=== PATIENT | male | born 1950 | race Caucasian/White ===

== ENCOUNTER → 2017-01-30 | Outpatient (CLI) | payer MEDICARE ==
[2017-01-30 08:33] LABS: Basophils % (A) 1 %; CH 29.3; CHCM 34.4; Eosinophils # (A) 0.3 k/uL (0-0.7); Eosinophils % (A) 5 %; HDW 2.82; HGB 15.3 gm/dL (13.0-17.5); Luc # (Auto) 0.14; Luc % (Auto) 3; Lymphocytes % (A) 18 %; MCH 29.7 pg (25.0-35.0); MCHC 34.7 g/dL (31.0-37.0); MCV 85.4 fL (80.0-100.0); Mean Platelet Volume 6.8; Monocytes # (A) 0.6 k/uL (0-1.0); Monocytes % (A) 10 %; Neutrophils # (A) 3.6 k/uL (1.3-7.7); Neutrophils % (A) 64 %; RBC 5.15 m/uL (4.30-5.90); RDW 12.8 % (11.5-15.5); WBC 5.6 k/uL (3.8-10.6); WBC (Perox) 5.73
[2017-01-30 11:45] LABS: Prostate Specific Antigen 0.92 ng/mL (0.00-4.00)
== END | disposition home or self-care (01) ==
LOC: LABWHC1 07:42
PROVIDERS: ATTEND Family Medicine
DX: Z00.00 Encounter for general adult medical examination without abnormal findings (principal); E78.00 Pure hypercholesterolemia, unspecified; I10 Essential (primary) hypertension
CPT/HCPCS: 36415; 80061; 84153; 84443; 85025

== ENCOUNTER → 2017-06-19 | Outpatient (CLI) | payer MEDICARE ==
[2017-06-19 09:04] LABS: ALT 29 U/L (21-72); AST 22 U/L (17-59); Cholesterol 124 mg/dL (<200); HDL Cholesterol 52 mg/dL (40-60)
== END | disposition home or self-care (01) ==
LOC: LABWHC1 08:00
PROVIDERS: ATTEND Internal Medicine Interventional Cardiology
DX: E78.2 Mixed hyperlipidemia (principal)
CPT/HCPCS: 36415; 80061; 84450; 84460

== ENCOUNTER → 2017-12-02 | Outpatient (CLI) | payer MEDICARE ==
[2017-12-02 08:30] LABS: ALT 34 U/L (21-72); AST 22 U/L (17-59); Albumin 3.8 g/dL (3.5-5.0); Alkaline Phosphatase 95 U/L (38-126); Anion Gap 9 mmol/L; Blood Urea Nitrogen 21 mg/dL (9-20); Calcium 9.6 mg/dL (8.4-10.2); Carbon Dioxide 26 mmol/L (22-30); Chloride 107 mmol/L (98-107); Cholesterol 112 mg/dL (<200); Glucose 120 mg/dL (74-99); HDL Cholesterol 44 mg/dL (40-60); LDL Cholesterol,Calculated 53 mg/dL (0-99); Potassium 4.2 mmol/L (3.5-5.1); Sodium 142 mmol/L (137-145); Total Bilirubin 0.8 mg/dL (0.2-1.3); Total Protein 6.1 g/dL (6.3-8.2); Triglycerides 77 mg/dL (<150)
== END | disposition home or self-care (01) ==
LOC: LABWHC1 07:25
PROVIDERS: ATTEND Internal Medicine Interventional Cardiology
DX: E78.2 Mixed hyperlipidemia (principal)
CPT/HCPCS: 36415; 80053; 80061

== ENCOUNTER → 2018-06-23 | Outpatient (CLI) | payer MEDICARE ==
[2018-06-23 08:00] LABS: ALT 36 U/L (21-72); AST 25 U/L (17-59); Alkaline Phosphatase 81 U/L (38-126); Anion Gap 6 mmol/L; Blood Urea Nitrogen 23 mg/dL (9-20); Calcium 9.2 mg/dL (8.4-10.2); Carbon Dioxide 26 mmol/L (22-30); Chloride 108 mmol/L (98-107); Cholesterol 133 mg/dL (<200); Glucose 115 mg/dL (74-99); HDL Cholesterol 52 mg/dL (40-60); LDL Cholesterol,Calculated 70 mg/dL (0-99); Potassium 4.2 mmol/L (3.5-5.1); Sodium 140 mmol/L (137-145); Total Protein 6.4 g/dL (6.3-8.2); Triglycerides 57 mg/dL (<150)
== END | disposition home or self-care (01) ==
LOC: LABWHC1 07:24
PROVIDERS: ATTEND Internal Medicine Interventional Cardiology
DX: E78.2 Mixed hyperlipidemia (principal)
CPT/HCPCS: 36415; 80053; 80061

== ENCOUNTER 2018-11-27 11:52 | Day surgery (SDC) | payer MEDICARE ==
[2018-11-24 11:57] VITALS: BMI 27.1
[~2018-11-27 11:52] MED LIST: DEXAMETHASONE SOD PHOSPHATE 10 MG/ML 1 ML VIAL IV ONE; HYDROmorphone 0.5 MG/0.5 ML SYRINGE IVP PRN; LACTATED RINGERS 1,000 ML IV SCH; MIDAZOLAM (PF) 2 MG/2 ML VIAL IV PRN; ONDANSETRON 4 MG/2 ML VIAL IVP ONE; ceFAZolin IN SWFI 2 GM/20 ML SYRINGE IVP ONE
[2018-11-27] MEDS ORDERED: LIDOCAINE 1% 20 ML VIAL (10MG/ML) FOR IV START INTRADERMA ONE (12:42)
[2018-11-27] MEDS ORDERED: fentaNYL (PF) 50 MCG/ML 2 ML AMP IVP ONE (13:00)
[2018-11-27] MEDS ORDERED: MIDAZOLAM 2 MG/2 ML VIAL IVP ONE (13:00)
[2018-11-27] MEDS ORDERED: PROPOFOL 10 MG/ML 20 ML VIAL IV ONE ×2 (13:24)
[2018-11-27] MEDS ORDERED: LIDOCAINE 1% INJ 10MG/ML (20 ML MDV) ONE ×2 (13:24)
[2018-11-27] MEDS ORDERED: ROCURONIUM BROMIDE 10 MG/ML 10 ML VIAL IV ONE ×2 (13:24)
[2018-11-27] MEDS ORDERED: ePHEDrine SULFATE/0.9% NACL/PF 50 MG/5 ML SYRINGE IV ONE ×2 (13:24)
[2018-11-27] MEDS ORDERED: MIDAZOLAM 2 MG/2 ML VIAL ONE ×2 (13:24)
[2018-11-27] MEDS ORDERED: fentaNYL (PF) 50 MCG/ML 2 ML AMP ONE ×2 (13:24)
[2018-11-27] MEDS ORDERED: ceFAZolin 1,000 MG in SODIUM CHLORIDE 0.9% 1,000 ML IRRIGATION ONE (13:36)
[2018-11-27] MEDS ORDERED: LACTATED RINGERS 1,000 ML IV ONE (14:32)
[2018-11-27] MEDS ORDERED: ROPIVACAINE 1,100 MG, SODIUM CHLORIDE 0.9% 500 ML 330 ML MISCELLANE PRN ×2 (14:57)
[2018-11-27 15:20] VITALS: TEMP 99.2
--- NOTE | 2018-11-27 15:26 | P.ONQ ---
Anesthesiology Proc Note - PNB - Peripheral Nerve Block Performed Right Adductor Canal Infusion Time Out Performed: Yes Procedure Start Time: 13:00 Procedure Stop Time: 13:12 Indication: Requested by physician Specifically requested for management of pain by DrEwelina: Marcin Childress Sedation Type: Sedate with meaningful contact maintained Preparation: Sterile Dressing Position: Supine Catheter: Indwelling (pujank) Needle Size: 100mm (4") Needle Gauge: 21 Technique: Ultrasound Injectate: 0.5% Ropivacaine (see comment for volume) (20 ml) Blood Aspirated: No Pain Paresthesia on Injection Noted: No Resistance on Injection: Normal Events: Uneventful and Well Tolerated
[2018-11-27 15:42] VITALS: RESP 18
[2018-11-27] MEDS ORDERED: HYDROcodone/APAP 5-325MG 1 EACH TAB PO ONE (16:00)
[2018-11-27 17:23] VITALS: BP 152/78; PULSE 63
--- NOTE | 2018-12-15 12:00 | P.OP ---
Date of Procedure: 11/27/18 Procedure(s) Performed: PREOPERATIVE DIAGNOSES: 1. Right quad tendon rupture and disruption of the extensor mechanism, right knee POSTOPERATIVE DIAGNOSES: 1. Right quad tendon rupture and disruption of the extensor mechanism, right knee PROCEDURES PERFORMED: 1. Right knee open quad tendon repair, primary ANESTHESIA: General ESTIMATED BLOOD LOSS: Less than 25 cc TOURNIQUET: None DEBONING TEAM LEADER: None COMPLICATIONS: None DISPOSITION: To postanesthesia care unit INDICATIONS: Mr. García is a 68-year-old male who ruptured his quad tendon during a fall. He presents to the operating room today for quad tendon repair. I have explained the details of this surgery thoroughly and also explained the potential risks and complications. These are inclusive of, but not limited to: bleeding, infection, scarring, discomfort, blood vessel and nerve damage, stiffness, weakness, need for further surgery, failure to relieve symptoms, persistence or worsening of problems, , and other risks. Patient is aware of these risks and agrees to proceed with surgery. The consent form has been signed. PROCEDURE: Appropriate consent was obtained from the patient, who was then taken to the operating room and placed in the supine position. General anesthesia was initiated. Positioning was performed with care to make sure that all pressure points were adequately padded. Bear-hugger was used along with leg sequential compression device(s). Prepping and draping was completed in the usual aseptic fashion using Chloraprep. Timeout was called, confirming patient identity, side, procedure, and administration of antibiotics. The patient received intravenous antibiotics prior to incision. Incision was created over the anterior aspect of the knee directly over the prepatellar bursa and quad tendon. Incision was carried carefully down through skin into subcu tissues and to the peritenon. Full thickness subcutaneous flaps were created for exposure of the extensor mechanism and the ruptured quad tendon. The quad tendon had torn from the inferior pole of patella in ragged fashion. However, evaluation of the remaining distal stump of the quad tendon showed tissue adequate for a modified Krakw type repair. Minimal debridement of the ragged ends of the quad tendon was performed to not overly shorten the tendon. A modified Krakw-type stitch was then placed using #5 FiberWire suture through the medial and lateral sides of the quad tendon. Tension was held on the sutures after every throw to make sure that the sutures would not give and slipped after repair to the patella. Next, a 3 mm hole was drilled using a Beath needle from proximal to distal through the anterior aspect of the patella. The needle emerged at the patellar tendon insertion and a second hole was placed parallel to the first in similar fashion. The #5 FiberWire sutures were then brought through the patella using the Beath needle. The patella was carefully held in place by an assistant service manager and quad tendon was noted to be well reduced into the superior pole of the patella with the knee in full extension. The sutures were then tied down securely over the inferior aspect of the patella and the knot was buried within the patellar tendon. Once tension was released, it was noted that the quad tendon adequately restored the continuity of the extensor mechanism centrally. On both the medial and lateral sides of the extensor retinaculum, supplemental #2 FiberWire sutures were placed as well as 0 Vicryl sutures to further reinforce the repair. The knee was then gently bent to approximately 45 to assess the strength of the repair. The repair appeared robust without evidence of suture slippage or lengthening of the quad tendon. Further testing past 45 was not performed in order to not over stress the repair. Thorough irrigation of the wound was performed using normal saline. Hemostasis was obtained throughout the case using electrocautery. Sterile dressing was then applied using ABDs pads, Green roll and an Rajinder wrap and a secure knee immobilizer splint was applied. The patient tolerated the procedure well and no complications and minimal blood loss. He was subsequently transferred to recovery room in stable condition. Sponge and needle counts are correct.
== END 2018-11-27 17:24 | disposition home or self-care (01) ==
LOC: OR 11:52
PROVIDERS: ATTEND Orthopaedic Surgery
DX: S76.111A Strain of right quadriceps muscle, fascia and tendon, initial encounter (principal); W18.2XXA Fall in (into) shower or empty bathtub, initial encounter; M25.061 Hemarthrosis, right knee; K21.9 Gastro-esophageal reflux disease without esophagitis; E78.2 Mixed hyperlipidemia; I25.10 Atherosclerotic heart disease of native coronary artery without angina pectoris; I25.5 Ischemic cardiomyopathy; I11.9 Hypertensive heart disease without heart failure; I25.2 Old myocardial infarction; Z95.5 Presence of coronary angioplasty implant and graft; Z79.1 Long term (current) use of non-steroidal anti-inflammatories (NSAID); Z79.82 Long term (current) use of aspirin; Z79.891 Long term (current) use of opiate analgesic; Z79.899 Other long term (current) drug therapy; Z85.828 Personal history of other malignant neoplasm of skin; Z85.820 Personal history of malignant melanoma of skin; Z87.442 Personal history of urinary calculi; Z82.49 Family history of ischemic heart disease and other diseases of the circulatory system; Z88.8 Allergy status to other drugs, medicaments and biological substances
CPT/HCPCS: 64448; 27385; C1772; J2250; J1100; J2405; J0690 ×2; J2001; J3010; J2795; J2704

== ENCOUNTER → 2019-01-21 | Outpatient (CLI) | payer MEDICARE | END | disposition home or self-care (01) | LOC: LABT 09:10 | PROVIDERS: ATTEND Family Medicine | DX: Z00.00 Encounter for general adult medical examination without abnormal findings (principal); E78.5 Hyperlipidemia, unspecified; I10 Essential (primary) hypertension; I25.2 Old myocardial infarction | CPT/HCPCS: 36415; 84153; 86803 ==

== ENCOUNTER → 2019-02-17 | Outpatient (CLI) | payer MEDICARE ==
[2019-02-17 12:04] LABS: Albumin 4.1 g/dL (3.80-4.90); Albumin/Globulin Ratio 2.73 (1.60-3.17); Calcium 9.2 mg/dL (8.7-10.3); Globulin 1.5 g/dL (1.6-3.3); LDL Cholesterol,Calculated 64.4 mg/dL (0.0-131.0); Potassium 4.6 mmol/L (3.5-5.5); Total Bilirubin 1.2 mg/dL (0.2-1.2); Total Protein 5.6 g/dL (6.2-8.2); VLDL Calculation 12.6 mg/dL (5.00-40.00)
== END | disposition home or self-care (01) ==
LOC: LABWHC1 07:06
PROVIDERS: ATTEND Internal Medicine Interventional Cardiology
DX: E78.2 Mixed hyperlipidemia (principal)
CPT/HCPCS: 36415; 80053; 80061

== ENCOUNTER → 2019-03-01 | Outpatient (CLI) | payer MEDICARE ==
[2019-03-01 10:49] LABS: Anion Gap 6.5 mmol/L (4.00-12.00); Carbon Dioxide 26.5 mmol/L (21.6-31.8); Potassium 3.8 mmol/L (3.5-5.5)
== END | disposition home or self-care (01) ==
LOC: LABWHC1 06:46
PROVIDERS: ATTEND Internal Medicine Interventional Cardiology
DX: I10 Essential (primary) hypertension (principal)
CPT/HCPCS: 36415; 80051; 82565; 84520

== ENCOUNTER → 2019-06-22 | Outpatient (CLI) | payer MEDICARE ==
[2019-06-22 17:42] LABS: African American GFR (CKD) 105.6 (60.0-200.0); Albumin/Globulin Ratio 2.5 (1.60-3.17); Anion Gap 6.1 mmol/L (4.00-12.00); BUN/Creat Ratio 21.25 Ratio (12.00-20.00); Calcium 9.1 mg/dL (8.7-10.3); Carbon Dioxide 23.9 mmol/L (21.6-31.8); Chol/HDL Ratio 2.47; Globulin 1.6 g/dL (1.6-3.3); LDL Cholesterol,Calculated 57.6 mg/dL (0.0-131.0); Total Protein 5.6 g/dL (6.2-8.2); VLDL Calculation 14.4 mg/dL (5.00-40.00)
== END | disposition home or self-care (01) ==
LOC: LABWHC1 08:12
PROVIDERS: ATTEND Internal Medicine Interventional Cardiology
DX: E78.2 Mixed hyperlipidemia (principal)
CPT/HCPCS: 36415; 80053; 80061

== ENCOUNTER → 2019-09-06 | Outpatient (CLI) | payer MEDICARE ==
[2019-09-06 11:17] LABS: Basophils # (A) 0.1 k/uL (0-0.2); Basophils % (A) 2 %; Eosinophils # (A) 0.5 k/uL (0-0.7); Eosinophils % (A) 8 %; HCT 43.8 % (39.0-53.0); HGB 14.9 gm/dL (13.0-17.5); Lymphocytes # (A) 0.9 k/uL (1.0-4.8); Lymphocytes % (A) 15 %; MCH 29.5 pg (25.0-35.0); MCV 86.7 fL (80.0-100.0); Mean Platelet Volume 8.5; Monocytes # (A) 0.5 k/uL (0-1.0); Monocytes % (A) 8 %; Neutrophils # (A) 3.8 k/uL (1.3-7.7); Neutrophils % (A) 65 %; Platelet Count 252 k/uL (150-450); RBC 5.06 m/uL (4.30-5.90); RDW 12.5 % (11.5-15.5); WBC 5.8 k/uL (3.8-10.6)
[2019-09-06 17:50] LABS: African American GFR (CKD) 105.6 (60.0-200.0); Albumin 4.2 g/dL (3.80-4.90); Albumin/Globulin Ratio 2.63 (1.60-3.17); Anion Gap 10.4 mmol/L (4.00-12.00); Calcium 9.4 mg/dL (8.7-10.3); Carbon Dioxide 26.6 mmol/L (21.6-31.8); Chol/HDL Ratio 2.7; Globulin 1.6 g/dL (1.6-3.3); LDL Cholesterol,Calculated 61.8 mg/dL (0.0-131.0); Potassium 3.9 mmol/L (3.5-5.5); Total Bilirubin 1.4 mg/dL (0.2-1.2); Total Protein 5.8 g/dL (6.2-8.2); VLDL Calculation 18.2 mg/dL (5.00-40.00)
[2019-09-06 17:58] LABS: T4, Free (Free Thyroxine) 1.4 ng/dL (0.80-1.80)
== END | disposition home or self-care (01) ==
LOC: LABWHC1 07:56
PROVIDERS: ATTEND Family Medicine
DX: Z00.00 Encounter for general adult medical examination without abnormal findings (principal); I10 Essential (primary) hypertension; E78.5 Hyperlipidemia, unspecified; Z12.5 Encounter for screening for malignant neoplasm of prostate
CPT/HCPCS: 36415; 80053; 80061; 84153; 84439; 84443; 85025

== ENCOUNTER → 2020-03-15 | Outpatient (CLI) | payer MEDICARE ==
[2020-03-15 09:48] LABS: Basophils % (A) 1 %; Eosinophils # (A) 0.3 k/uL (0-0.7); Eosinophils % (A) 6 %; HCT 45.4 % (39.0-53.0); HGB 15.4 gm/dL (13.0-17.5); Lymphocytes % (A) 19 %; MCH 29.5 pg (25.0-35.0); MCV 86.7 fL (80.0-100.0); Mean Platelet Volume 7.8; Monocytes # (A) 0.5 k/uL (0-1.0); Monocytes % (A) 9 %; Neutrophils # (A) 3.3 k/uL (1.3-7.7); Neutrophils % (A) 64 %; Platelet Count 209 k/uL (150-450); RBC 5.24 m/uL (4.30-5.90); RDW 12.5 % (11.5-15.5); WBC 5.2 k/uL (3.8-10.6)
[2020-03-15 15:50] LABS: African American GFR (CKD) 104.9 (60.0-200.0); Albumin/Globulin Ratio 2.11 (1.60-3.17); BUN/Creat Ratio 32.5 Ratio (12.00-20.00); Bilirubin, Conjugated 0.5 mg/dL (0.20-0.40); Bilirubin,Unconjugated 0.8 mg/dL; Calcium 9.4 mg/dL (8.7-10.3); Globulin 1.9 g/dL (1.6-3.3); LDL Cholesterol,Calculated 57.4 mg/dL (0.0-131.0); Non-African American GFR(CKD) 90.5 (60.0-200.0); Potassium 4.3 mmol/L (3.5-5.5); Total Bilirubin 1.3 mg/dL (0.3-1.2); Total Protein 5.9 g/dL (6.2-8.2); VLDL Calculation 14.6 mg/dL (5.00-40.00)
[2020-03-15 15:57] LABS: T4, Free (Free Thyroxine) 1.1 ng/dL (0.80-1.80)
== END | disposition home or self-care (01) ==
LOC: LABWHC1 08:16
PROVIDERS: ATTEND Internal Medicine Interventional Cardiology
DX: Z00.00 Encounter for general adult medical examination without abnormal findings (principal); E78.2 Mixed hyperlipidemia
CPT/HCPCS: 36415; 80053; 80061; 82248; 84439; 84443; 85025

== ENCOUNTER → 2020-10-25 | Outpatient (CLI) | payer MEDICARE | END | disposition home or self-care (01) | LOC: LABWHC1 07:09 | PROVIDERS: ATTEND Nurse Practitioner Adult Health | DX: E78.2 Mixed hyperlipidemia (principal) | CPT/HCPCS: 36415; 80061; 84450; 84460 ==

== ENCOUNTER → 2021-05-23 | Outpatient (CLI) | payer MEDICARE ==
[2021-05-23 08:26] LABS: African American GFR (CKD) >90 (>60 ml/min/1.73 sqM); Blood Urea Nitrogen 21 mg/dL (9-20); Non-African American GFR(CKD) >90 (>60 ml/min/1.73 sqM)
--- NOTE | 2021-05-23 10:23 | CT ---
EXAMINATION TYPE: CT angio chest DATE OF EXAM: 05/23/2021 COMPARISON: None HISTORY: 70-year-old male I71.2, thoracic aortic aneurysm without rupture. Prior LA in 2015. TECHNIQUE: Contiguous axial scanning of the chest performed with IV Contrast, patient injected with 1 00 mL of Isovue 370. Coronal/sagittal MIP reconstructions performed. 3-D reconstructions generated on a dedicated independent workstation. CT DLP: 362.7 mGycm Automated exposure control for dose reduction was used. FINDINGS: Heart is borderline enlarged without pericardial effusion. LAD and circumflex coronary artery calcifi cations are present. Mild aneurysm aortic root at 4.3 cm. Mild aneurysm ascending aorta 4.1 cm. Bovine configuration to the aortic arch with minimal atherosclerotic arch calcifications. Mildly ectatic upper descending thoracic aorta at 3.3 cm. Scattered mild arthroscopic calcifications descending thoracic aorta. Mildly ectatic mid descending thoracic aorta at 2.8 cm. Borderline ectatic lower descending thoracic aorta 2.5 cm. No thoracic lymphadenopathy by CT size criteria. Trace bilateral gynecomastia. Trace biapical pleural parenchymal scarring. Scattered mild interstitial prominence has a chronic evelia earance. Mild dependent atelectasis bilaterally. Tiny 4 mm peripheral left lower lobe pulmonary nodule, axial image 37. No consolidation or pleural effusion. Visualized upper abdomen shows no gross abnormality. Bones: Patient within the mid to lower thoracic spine. Advanced disc/endplate degenerative change and facet arthropathy at L2-L3 with grade 1 retrolisthesis. IMPRESSION: 1. MILDLY ANEURYSMAL AORTIC ROOT AND ASCENDING AORTA MEASURING UP TO 4.3 CM. 2. MILDLY ECTATIC DESCENDING THORACIC AORTA MEASURING UP TO 3.3 CM. 3. BORDERLINE CARDIOMEGALY. LAD AND CIRCUMFLEX CORONARY ARTERY CALCIFICATIONS. 4. TINY 4 MM LEFT LOWER LOBE PULMONARY NODULE. A 12 MONTH FOLLOW-UP CT OF THE CHEST CAN REASSESS.
== END | disposition home or self-care (01) ==
LOC: RADCTMAIN 07:40
PROVIDERS: ATTEND Internal Medicine Interventional Cardiology
DX: I77.810 Thoracic aortic ectasia (principal); I25.10 Atherosclerotic heart disease of native coronary artery without angina pectoris; R91.1 Solitary pulmonary nodule
CPT/HCPCS: 82565; 84520; 71275; 36415; Q9967

== ENCOUNTER → 2021-10-15 | Outpatient (CLI) | payer MEDICARE ==
[2021-10-15 11:34] LABS: ALT 19 U/L (10-49); AST 19 U/L (14-35); African American GFR (CKD) 101.6 (60.0-200.0); Albumin/Globulin Ratio 2.25 (1.60-3.17); Alkaline Phosphatase 101 U/L (41-126); BUN/Creat Ratio 23.18 Ratio (12.00-20.00); Blood Urea Nitrogen 19.7 mg/dL (9.0-27.0); Calcium 9.2 mg/dL (8.7-10.3); Carbon Dioxide 26.6 mmol/L (20.0-27.5); Chloride 105 mmol/L (96-109); Chol/HDL Ratio 2.59 Ratio; Globulin 1.8 g/dL (1.6-3.3); Glucose 137 mg/dL (70-110); LDL Cholesterol,Calculated 51.7 mg/dL (0.0-131.0); Non-African American GFR(CKD) 87.7 (60.0-200.0); Potassium 3.9 mmol/L (3.5-5.5); Sodium 141 mmol/L (135-145); Total Protein 5.8 g/dL (6.2-8.2); VLDL Calculation 18.22 mg/dL (5.00-40.00)
== END | disposition home or self-care (01) ==
LOC: LABWHC1 07:35
PROVIDERS: ATTEND Nurse Practitioner Adult Health
DX: I10 Essential (primary) hypertension (principal); E78.2 Mixed hyperlipidemia
CPT/HCPCS: 36415; 80053; 80061

== ENCOUNTER → 2021-11-21 | Outpatient (CLI) | payer MEDICARE | END | disposition home or self-care (01) | LOC: LABWHC1 07:02 | PROVIDERS: ATTEND Nurse Practitioner Adult Health | DX: I48.91 Unspecified atrial fibrillation (principal) | CPT/HCPCS: 36415; 84443 ==

== ENCOUNTER 2021-12-17 05:58 | Day surgery (SDC) | payer MEDICARE ==
[2021-12-14 10:14] VITALS: BMI 27.4
[~2021-12-17 05:58] MED LIST changes: -DEXAMETHASONE SOD PHOSPHATE 10 MG/ML 1 ML VIAL IV ONE; -HYDROmorphone 0.5 MG/0.5 ML SYRINGE IVP PRN; -LACTATED RINGERS 1,000 ML IV SCH; -MIDAZOLAM (PF) 2 MG/2 ML VIAL IV PRN; -ONDANSETRON 4 MG/2 ML VIAL IVP ONE; +SODIUM CHLORIDE 0.9% 1,000 ML IV SCH; -ceFAZolin IN SWFI 2 GM/20 ML SYRINGE IVP ONE
[2021-12-17] MEDS ORDERED: SODIUM CHLORIDE 0.9% 1,000 ML IV SCH ×2 (05:59→07:45)
[2021-12-17] MEDS ORDERED: SODIUM CHLORIDE 0.9% 500 ML 500 ML IV ONE (06:21)
[2021-12-17 06:29] VITALS: TEMP 98
[2021-12-17 06:58] LABS: African American GFR (CKD) >90 (>60 ml/min/1.73 sqM); Anion Gap 5 mmol/L; Blood Urea Nitrogen 18 mg/dL (9-20); Calcium 8.9 mg/dL (8.4-10.2); Carbon Dioxide 31 mmol/L (22-30); Chloride 103 mmol/L (98-107); Glucose 126 mg/dL (74-99); Non-African American GFR(CKD) >90 (>60 ml/min/1.73 sqM); Potassium 3.7 mmol/L (3.5-5.1); Sodium 139 mmol/L (137-145)
[2021-12-17] MEDS ORDERED: PROPOFOL 10 MG/ML 20 ML VIAL IV ONE (07:15)
[2021-12-17] MEDS ORDERED: LIDOCAINE 1% INJ 10MG/ML (20 ML MDV) ONE (07:15)
--- NOTE | 2021-12-17 07:48 | P.PCN ---
Date of Procedure: 12/17/21 Description of Procedure: Indication: Atrial fibrillation Procedure Description: After explaining the procedure to the patient, it's risk and complications, blood pressure, heart rate and O2 saturation were monitored. The throat was sprayed with Cetacaine. Patient received sedation per anesthesia department The probe was introduced into the esophagus without difficulty. Images were obtained. Following that, the probe was removed. There was no immediate complication. Findings: Left atrial size is dilated, left atrial appendage is normal. Left ventricle size is normal the ejection fraction is 45-50%. The aortic valve, mitral valve, tricuspid valve are normal. Descending thoracic aorta is normal. No pericardial effusion was noted. Contrast bubble study revealed no shunting across the intra-atrial septum. Doppler: Pulse wave and color Doppler were obtained and revealed moderate mitral with mild to moderate tricuspid regurgitation there was no shunting across the intra- atrial septum. Conclusion: 1. Dilated left atrium with normal appearance of left atrial appendage 2. Mildly impaired systolic function 3. Moderate mitral with [id number] tricuspid regurgitation 4. No shunting across the intra-atrial septum 5. Normal appearance of the descending thoracic aorta.
--- NOTE | 2021-12-17 07:49 | P.PCN ---
Date of Procedure: 12/17/21 Description of Procedure: Cardioversion: After obtaining transesophageal echocardiogram and sedated state. Anesthesia department synchronized 75, 120 and then 200 J cardioversion were performed with inability to restore sinus mechanism. There was no immediate complications.
[2021-12-17 07:54] VITALS: RESP 16
[2021-12-17] MEDS ORDERED: LOSARTAN 25 MG TAB PO SCH (09:00)
[2021-12-17] MEDS ORDERED: carvediloL 3.125 MG TAB PO SCH (09:00)
[2021-12-17] MEDS ORDERED: NON FORMULARY DRUG (Omeprazole [Prilosec] 20 MG Capsule.Dr) PO SCH (09:00)
[2021-12-17] MEDS ORDERED: NON FORMULARY DRUG (Aspirin [Adult Low Dose Aspirin Ec] 81 MG Tablet.Dr) PO SCH (09:00)
[2021-12-17] MEDS ORDERED: APIXABAN 5 MG TAB PO SCH (09:00)
[2021-12-17] MEDS ORDERED: hydroCHLOROthiazide 25 MG TAB PO SCH (09:00)
[2021-12-17 14:06] VITALS: BP 136/75; PULSE 59
[2021-12-17] MEDS ORDERED: ATORVASTATIN 80 MG TAB PO SCH (21:00)
== END 2021-12-17 09:35 | disposition home or self-care (01) ==
LOC: CATHCVL 05:58
PROVIDERS: ATTEND Internal Medicine Interventional Cardiology
DX: I48.91 Unspecified atrial fibrillation (principal); I25.10 Atherosclerotic heart disease of native coronary artery without angina pectoris; I10 Essential (primary) hypertension; E78.5 Hyperlipidemia, unspecified; K21.9 Gastro-esophageal reflux disease without esophagitis; Z20.822 Contact with and (suspected) exposure to COVID-19
CPT/HCPCS: 93312; 93320; 93325; 92960; 80048; 87635; J2001; J2704

== ENCOUNTER → 2022-04-10 | Outpatient (CLI) | payer MEDICARE ==
[2022-04-10 10:46] LABS: HGB 14.3 g/dL (13.0-17.0); MCH 28.3 pg (27.0-32.0); MCHC 33.3 g/dL (32.0-37.0); Mean Platelet Volume 11.5 fL (9.5-12.2); NRBC Per 100 WBC 0 /100 WBCS (0.0-0.0); Platelet Count 214 X 10*3/uL (140-440); RBC 5.06 X 10*6/uL (4.40-5.60); RDW 12.6 % (11.5-14.5); WBC 5.08 X 10*3/uL (4.50-10.00)
[2022-04-10 11:03] LABS: African American GFR (CKD) 103.4 (60.0-200.0); Anion Gap 12.4 mmol/L (10.00-18.00); Blood Urea Nitrogen 21.5 mg/dL (9.0-27.0); Carbon Dioxide 23.6 mmol/L (20.0-27.5); Non-African American GFR(CKD) 89.2 (60.0-200.0)
== END | disposition home or self-care (01) ==
LOC: LABPAT 07:03
PROVIDERS: ATTEND Internal Medicine Clinical Cardiac Electrophysiology
DX: Z01.812 Encounter for preprocedural laboratory examination (principal); I48.19 Other persistent atrial fibrillation
CPT/HCPCS: 80051; 82565; 84520; 85027

== ENCOUNTER 2022-04-15 05:48 | Day surgery (SDC) | payer MEDICARE ==
[2022-04-12 11:31] VITALS: BMI 27.1
[~2022-04-15 05:48] MED LIST changes: +LIDOCAINE 1% (10MG/ML) FOR IV START INTRADERMA PRN; -SODIUM CHLORIDE 0.9% 1,000 ML IV SCH
[2022-04-15] MEDS: SODIUM CHLORIDE 0.9% 1,000 ML IV SCH (06:20)
[2022-04-15 06:24] VITALS: RESP 16
[2022-04-15] MEDS ORDERED: fentaNYL (PF) 50 MCG/ML 2 ML AMP ONE (07:16)
[2022-04-15] MEDS ORDERED: ePHEDrine 50 MG/ML 1 ML VIAL ONE (07:16)
[2022-04-15] MEDS ORDERED: HEPARIN SODIUM,PORCINE 10,000 UNIT/ML 1 ML VIAL ONE (07:16)
[2022-04-15] MEDS ORDERED: PROPOFOL 10 MG/ML 20 ML VIAL IV ONE (07:16)
[2022-04-15] MEDS ORDERED: SUCCINYLCHOLINE CHLORIDE 100 MG/5 ML SYR IV ONE (07:16)
[2022-04-15] MEDS ORDERED: LIDOCAINE 1% INJ 10MG/ML (5 ML VIAL-PF) SQ ONE (07:59)
[2022-04-15] MEDS ORDERED: HEPARIN SOD,PORK IN 0.45% NACL 25,000 UNIT in 0.45% NACL 1 250ML.BAG IV ONE (08:00)
[2022-04-15] MEDS ORDERED: IOPAMIDOL-370 125ML BTL INJ ONE (10:30)
--- NOTE | 2022-04-15 11:11 | P.HPCAR ---
History of Present Illness This is Dr. Cheatham dictating an H/P on this patient The patient was interviewed and examined IMPRESSION / ASSESSMENT: Long-standing persistent atrial fibrillation Name complaint of tiredness and fatigue and shortness of breath Left ventricle ejection fraction 50% Hypertension, dyslipidemia PLAN: Pulmonary vein isolation linear ablation of the left atrial roof Continue ELIQUIS HPI Patient's main complaint is shortness of breath on exertion Denies any chest discomfort business syncope Orthopnea PND No fever chills cough expectoration ROS: No fever chills or rigors, no cough, phlegm or expectoration, no nausea, vomiting or diarrhea, no hematuria, dysuria, no musculoskeletal complaints, no strokes or seizures, no skin lesions. EXAMINATION: 97.1F pulse rate in the 50s and 60s irregular Blood pressure 146/72 mmHg No JVD no hepatojugular reflux No lower extremity edema line soft abdomen nontender And clear lungs no rhonchi no crackles Heart sounds no murmurs, irregular rhythm REVIEW OF LABS, ECG & MEDICAL DATA Calles PCR negative Physical Exam Vitals: Vital Signs Temp Pulse Resp BP Pulse Ox 04/15/22 06:23 97.1 F L 51 L 16 146/82 95 Intake and Output 04/14/22 04/15/22 04/15/22 22:59 06:59 14:59 Intake Total 450 Balance 450 Intake: IV 450 Other: Weight 88.2 kg Past Medical History Past Medical History: Coronary Artery Disease (CAD), Cancer, GERD/Reflux, Hyperlipidemia, Hypertension, Myocardial Infarction (NC), Syncope Additional Past Medical History / Comment(s): HX KIDNEY STONES, HX SKIN CA, TO S EE DR CHEATHAM'S HISTORY PHYSICAL FOR CARDIAC HISTORY Last Myocardial Infarction Date:: 09/28/2015 History of Any Multi-Drug Resistant Organisms: None Reported Past Surgical History: Heart Catheterization With Stent Additional Past Surgical History / Comment(s): BUNIONECTOMY. RIGHT QUADRICEP TENDON REPAIR. STENTSX4 Past Anesthesia/Blood Transfusion Reactions: No Reported Reaction Date of Last Stent Placement:: 10/25/2015 Smoking Status: Never smoker - Past Family History Father Family Medical History: Coronary Artery Disease (CAD), Hypertension Additional Family Medical History / Comment(s): CARDIAC CATH WITH STENT Mother Family Medical History: Cancer Brother(s) Family Medical History: No Reported History Additional Family Medical History / Comment(s): patient has 2 children with 3 grand kids,no major issues. Physical Examination Vital Signs Temp Pulse Resp BP Pulse Ox 04/15/22 06:23 97.1 F L 51 L 16 146/82 95 Intake and Output 04/14/22 04/15/22 04/15/22 22:59 06:59 14:59 Intake Total 450 Balance 450 Intake: IV 450 Other: Weight 88.2 kg Results Current Medications Generic Name Dose Route Start Last Admin Trade Name Janice PRN Reason Stop Dose Admin Sodium Chloride 1,000 mls @ 20 mls/hr 04/15/22 05:47 04/15/22 06:20 Saline 0.9% IV 05/15/22 05:48 450 mls .Q24H NIMESH Administration Lactated Ringer's 1,000 mls @ 20 mls/hr 04/15/22 05:47 Lactated Ringers IV 05/15/22 05:48 .Q24H NIMESH Lidocaine HCl 0.1 ml 04/15/22 05:47 Lidocaine 1% (10mg/Ml) For Iv Start INTRADERMA 05/15/22 05:48 PER PROTOCOL PRN IV Start Intake and Output 04/14/22 04/15/22 04/15/22 22:59 06:59 14:59 Intake Total 450 Balance 450 Intake: IV 450 Other: Weight 88.2 kg
[2022-04-15] MEDS ORDERED: ACETAMINOPHEN TAB 325 MG TAB PO PRN (11:12)
[2022-04-15] MEDS ORDERED: ACETAMINOPHEN IV (For NPO) 1,000 MG in EMPTY BAG 1 BAG IVPB ONE (11:12)
--- NOTE | 2022-04-15 11:38 | P.EPPROC ---
- EP Procedure Note Electrophysiology Procedure Note: PROCEDURE A. fib ablation/pulmonary vein isolation and linear ablation of the left atrial roof DIAGNOSIS Long-standing persistent Atrial fibrillation, symptomatic, refractory to therapy RESULT Significantly enlarged right atrium Significantly enlarged left atrium, greater than 6 cm from fossa ovalis to the keyanna of the left-sided veins Successful A. fib ablation/pulmonary vein isolation of all veins using cryo- ablation Complete entrance block in all 4 veins confirmed Linear ablation of the long left atrial roof No evidence for phrenic nerve injury Esophageal deflection YES, left-sided esophagus Patient remained in atrial fibrillation after complete PVI and linear ablation left atrial roof Electrical cardioversion with a synchronized shock across the chest YES PROCEDURE DETAILS Patient was brought to the EP lab in a fasting state after obtaining written informed consent. Procedure performed under general anesthesia Esophagus was intubated. Esophageal temperature monitoring with circa catheter. Esophageal deflection with an endoscope to avoid hypothermia of the esophagus. After initial muscle relaxant use, muscle relaxants were not given thereafter in order to assess phrenic nerve during procedure. Patient prepped and draped as per protocol Cryo ablation-set up with standard preparation of the cryoablation tools done. Femoral Venous access obtained on the right and left groins and sheaths placed Diagnostic catheters for the high right atrium, phrenic nerve stimulation and pacing, His bundle, coronary sinus placed Intracardiac echo catheter placed. Long sheath placed in the right atrium Left and right transseptal catheterization performed under intracardiac echo guidance. Intravenous heparin with aCT above 300 Later, catheter positioning and balloon positioning in the left atrium and pulmonary veins, under intracardiac echo guidance Diagnostic EP study with coronary sinus pacing and recording Baseline measurements: SD interval 292 ms in sinus rhythm, QRS 102 ms, QT 400 ms and sinus cycle length 1035 AH 118 and HV 51 in sinus Transseptal catheterization performed RA pressure LA pressure 05/05/11 Transseptal catheterization performed with standard sheath. The cryoablation sheath was then placed with an over the wire exchange without any acute complications. The cryoablation balloon was placed in the office of each pulmonary vein and all 4 pulmonary veins were isolated. IV dye was injected to confirm occlusion. Goal: achieve complete occlusion of the pulmonary vein, achieve -30 degrees C at 30 seconds and achieve -40 degrees C at 60 seconds and a time to effect of less than 60 seconds. If not, the balloon was repositioned to obtain this result After completion of Cryoblation with durations from 180-240 seconds, entrance block was confirmed with the Attain circular catheter in a roving fashion around the antrum of the pulmonary veins Phrenic nerve pacing was performed from the SVC, right innominate vein area and diaphragm voltage was monitored. Diaphragmatic contractions were also monitored manually for strength of contraction. Phrenic nerve could be stimulated from the anterior aspect of left superior pulmonary vein. Linear ablation of the left atrial roof was performed from the left superior to the right superior pulmonary veins Contiguous cryoablation lesions were performed and confirmed Good temperature is achieved with good contact Despite complete pulmonary vein isolation and a complete roof line, the patient remained in atrial fibrillation 5 200 J biphasic shock was used to cardio with the patient sinus rhythm with PACs Baseline SD interval was prolonged At the end of the procedure the Achieve catheter was once again used to check for entrance block Phrenic nerve stimulation was performed to confirm diaphragmatic stimulation the end of the procedure Cine fluoroscopy was performed at the very end of the procedure to confirm movement of both diaphragms with inspiration and expiration At the end of the procedure the patient was extubated Venous sheaths were removed and hemostasis assured with a closure device PROCEDURES PERFORMED Diagnostic EP study CS pacing and recording Left and right transseptal catheterization Catheter the mapping of the tachycardia Intracardiac echocardiography Pulmonary vein isolation with transseptal and comprehensive EPS, [id number] Left atrial roof line, +[id number] Electrical cardioversion with a synchronized shock across the chest [id number]
[2022-04-15] MEDS ORDERED: ACETAMINOPHEN IV (For NPO) 1,000 MG/100 ML VIAL IVPB ONE (11:39)
--- NOTE | 2022-04-15 11:42 | P.PRLE ---
RE: Uday García Dear Davey Mr. García underwent an A. fib ablation with pulmonary vein isolation and linear ablation of the left atrial roof successfully However despite that he remained in atrial fibrillation and had to undergo electrical cardioversion He has a significantly enlarged right and left atria At baseline is FL interval is mildly prolonged at At this time and continue his current medications including carvedilol and anticoagulation with alk phos Thank you for entrusting me with the care of the patient Warm regards Sincerely Dwight Cheatham
[2022-04-15] MEDS: LACTATED RINGERS 1,000 ML IV SCH (12:30)
[2022-04-15] MEDS: carvediloL 3.125 MG TAB PO SCH (20:22)
[2022-04-15] MEDS: APIXABAN 5 MG TAB PO SCH (20:22)
[2022-04-15] MEDS ORDERED: ATORVASTATIN 80 MG TAB PO SCH (21:00)
[2022-04-16] MEDS: LACTATED RINGERS 1,000 ML IV SCH (06:06)
[2022-04-16] MEDS: SODIUM CHLORIDE 0.9% 1,000 ML IV SCH (06:07)
[2022-04-16] MEDS: carvediloL 3.125 MG TAB PO SCH (07:05)
[2022-04-16] MEDS ORDERED: PANTOPRAZOLE 40 MG TABLET PO SCH (07:30)
[2022-04-16 07:46] VITALS: BP 142/90; PULSE 92; TEMP 98.5
--- NOTE | 2022-04-16 08:05 | P.DS ---
Providers Attending physician: Dwight Cheatham Primary care physician: [facility] Course: Patient is doing well. No chest discomfort dizziness lightheadedness or palpitations Ambulating around in the room Groins of healed well no bruising bleeding or hematoma or swelling Scratchy throat no dysphagia On examination afebrile 98.5F, pulse rate 60s to 80s Blood pressure 142/90 and 122/71 mmHg Breath sounds are clear no rhonchi no crackles Heart sounds S1 and S2 are normal Abdomen is soft Groins of healed well no hematoma Impression Long-standing persistent atrial fibrillation Significantly enlarged right atrium Significantly enlarged left atrium, fossa ovalis to left pulmonary veins measurement greater than 6 cm Normal RA and LA mean pressures LV function greater than 50-55% Status post pulmonary vein isolation and linear ablation of the left atrial roof Electrical cardioversion performed at the end of the procedure Plan Continue current medications without any changes Continue anticoagulation Follow-up with Dr. Hernandez in a week Minimize alcohol intake. Discussed with the patient Sleep apnea assessment Plan - Discharge Summary Discharge Rx Participant: Yes New Discharge Prescriptions: No Action RX: Omeprazole [PriLOSEC] 20 mg PO DAILY Losartan [Cozaar] 50 mg PO DAILY RX: carvediloL [Coreg] 3.125 mg PO BID RX: Atorvastatin [Lipitor] 80 mg PO HS RX: Aspirin [Adult Low Dose Aspirin EC] 81 mg PO DAILY #1 tablet. Apixaban [Eliquis] 5 mg PO BID RX: hydroCHLOROthiazide 25 mg PO DAILY Discharge Medication List RX: Omeprazole [PriLOSEC] 20 mg PO DAILY 06/11/15 [History] Losartan [Cozaar] 50 mg PO DAILY 10/18/15 [History] RX: carvediloL [Coreg] 3.125 mg PO BID 10/18/15 [History] RX: Atorvastatin [Lipitor] 80 mg PO HS 09/30/16 [History] RX: Aspirin [Adult Low Dose Aspirin EC] 81 mg PO DAILY #1 tablet. 11/27/18 [Rx] Apixaban [Eliquis] 5 mg PO BID 12/14/21 [History] RX: hydroCHLOROthiazide 25 mg PO DAILY 12/14/21 [History] Follow up Appointment(s)/Referral(s): Dwight Cheatham MD [STAFF PHYSICIAN] - As Needed (Follow-up Dr. Hernandez in 1 week No change in medications Continue ELIQUIS) Activity/Diet/Wound Care/Special Instructions: Post EP study - Ablation instructions 1. Keep access sites dry for 2 days. 2. No heavy lifting or straining for 2 days. 3. Avoid bending the hips repeatedly for 2 days. 4. You may go up and down stairs slowly Call if the following is noted 1. Bleeding, increasing swelling or pain at the access sites. 2. Increasing chest discomfort, especially upon taking a deep breath. 3. Increasing shortness of breath, at rest or with exertion. 4. Undue cough / phlegm 5. Difficulty or pain while swallowing. 6. Pain or change in color in the extremities. 7. Fever, chills, rigors. 8. Increasing headache or neurologic symptoms. 9. Dizziness, fainting, palpitations Continue current medications Follow Dr. Hernandez in 1 week Discharge Disposition: HOME SELF-CARE
[2022-04-16] MEDS ORDERED: ASPIRIN 81 MG PO SCH (09:00)
[2022-04-16] MEDS ORDERED: hydroCHLOROthiazide 25 MG TAB PO SCH (09:00)
[2022-04-16] MEDS: APIXABAN 5 MG TAB PO SCH (09:00)
[2022-04-16] MEDS ORDERED: LOSARTAN 50 MG TAB PO SCH (09:00)
== END 2022-04-16 10:53 | disposition home or self-care (01) ==
LOC: CATHEP 05:48 → 6NMEDSUR 10:50 → CATHEP 04-16 10:53
PROVIDERS: ATTEND Internal Medicine Clinical Cardiac Electrophysiology
DX: I48.11 Longstanding persistent atrial fibrillation (principal); I71.2 Thoracic aortic aneurysm, without rupture; I25.10 Atherosclerotic heart disease of native coronary artery without angina pectoris; Z95.5 Presence of coronary angioplasty implant and graft; I42.0 Dilated cardiomyopathy; I10 Essential (primary) hypertension; Z20.822 Contact with and (suspected) exposure to COVID-19; E78.5 Hyperlipidemia, unspecified; Z82.49 Family history of ischemic heart disease and other diseases of the circulatory system; Z79.01 Long term (current) use of anticoagulants; Z79.82 Long term (current) use of aspirin; Z79.899 Other long term (current) drug therapy
CPT/HCPCS: 92960; 93656; 93657; 87635; C1894 ×2; C1769 ×5; C1760; C1730 ×2; C1759; C1893; C1733; C1766; J1644 ×2; J2001; J3010; J0131; J0330; J2704; Q9967

== ENCOUNTER → 2022-07-30 | Outpatient (CLI) | payer MEDICARE ==
[2022-07-30 10:31] LABS: ALT 29 U/L (10-49); AST 25 U/L (14-35); African American GFR (CKD) 102.4 (60.0-200.0); Albumin 4.1 g/dL (3.8-4.9); Alkaline Phosphatase 111 U/L (41-126); BUN/Creat Ratio 28.41 Ratio (12.00-20.00); Blood Urea Nitrogen 23.3 mg/dL (9.0-27.0); Calcium 9.4 mg/dL (8.7-10.3); Carbon Dioxide 29.2 mmol/L (20.0-27.5); Chloride 103 mmol/L (96-109); Globulin 2.4 g/dL (1.6-3.3); Glucose 126 mg/dL (70-110); LDL Cholesterol,Calculated 56.2 mg/dL (0.0-131.0); Non-African American GFR(CKD) 88.3 (60.0-200.0); Potassium 4.2 mmol/L (3.5-5.5); Sodium 138 mmol/L (135-145); Total Protein 6.5 g/dL (6.2-8.2); VLDL Calculation 13.34 mg/dL (5.00-40.00)
== END | disposition home or self-care (01) ==
LOC: LABWHC1 07:05
PROVIDERS: ATTEND Internal Medicine Interventional Cardiology
DX: E78.2 Mixed hyperlipidemia (principal)
CPT/HCPCS: 36415; 80053; 80061

== ENCOUNTER → 2022-08-26 | Outpatient (CLI) | payer MEDICARE ==
[2022-08-26 10:36] LABS: Basophils # (A) 0.04 X 10*3/uL (0.00-0.10); Basophils % (A) 0.9 %; Eosinophils # (A) 0.38 X 10*3/uL (0.04-0.35); Eosinophils % (A) 8.8 %; HCT 41.2 % (39.6-50.0); HGB 14.2 g/dL (13.0-17.0); Immature Grans, Automated 0.2 %; MCH 29.7 pg (27.0-32.0); MCHC 34.5 g/dL (32.0-37.0); MCV 86.2 fL (80.0-97.0); Mean Platelet Volume 10.7 fL (9.5-12.2); Monocytes # (A) 0.51 X 10*3/uL (0.20-1.00); Monocytes % (A) 11.8 %; NRBC Per 100 WBC 0 /100 WBCS (0.0-0.0); Neutrophils % (A) 55.3 %; Platelet Count 208 X 10*3/uL (140-440); RBC 4.78 X 10*6/uL (4.40-5.60); RDW 12.1 % (11.5-14.5); WBC 4.34 X 10*3/uL (4.50-10.00)
[2022-08-27 12:52] LABS: HCV Qualitative Result Not detected (Not detected); HCV Quant Log <1.08 (<1.08); HCV Quantitative Result <12 IU/mL (<12)
== END | disposition home or self-care (01) ==
LOC: LABWHC1 07:10
PROVIDERS: ATTEND Family Medicine
DX: Z00.00 Encounter for general adult medical examination without abnormal findings (principal); I10 Essential (primary) hypertension; I48.19 Other persistent atrial fibrillation; E78.2 Mixed hyperlipidemia; N52.9 Male erectile dysfunction, unspecified; J06.9 Acute upper respiratory infection, unspecified; I71.20 Thoracic aortic aneurysm, without rupture, unspecified
CPT/HCPCS: 36415; 84153; 84443; 85025; 87522

== ENCOUNTER 2022-09-01 15:19 | Emergency (ER) | payer MEDICARE ==
[2022-09-01 15:28] VITALS: RESP 18; TEMP 97.9
--- NOTE | 2022-09-01 15:43 | ED ---
Fall HPI - General Chief Complaint: Fall Stated Complaint: fall, knee injury Time Seen by Provider: 09/01/22 15:31 Source: patient, EMS, RN notes reviewed Mode of arrival: EMS - History of Present Illness Initial Comments: Patient is a 71-year-old male presenting to the emergency room with complaints of left knee pain. He reports that he was carrying a mattress up [address] and fell backwards onto his buttocks hitting his left knee on the door frame. He reports pain and swelling with impairment in range of motion at the inability to fully flex or straighten his leg. He has a history of quadriceps and meniscus issues and previously required surgery by Dr. Childress. In addition to his joint history has past medical history significant for CAD, [place], skin cancer, hyperlipidemia, hyper tension, GERD and kidney stones. - Related Data Home Medications Medication Instructions Recorded Confirmed Omeprazole [PriLOSEC] 20 mg PO DAILY 06/11/15 04/15/22 Losartan [Cozaar] 50 mg PO DAILY 10/18/15 04/15/22 carvediloL [Coreg] 3.125 mg PO BID 10/18/15 04/15/22 Atorvastatin [Lipitor] 80 mg PO HS 09/30/16 04/15/22 Apixaban [Eliquis] 5 mg PO BID 12/14/21 04/15/22 hydroCHLOROthiazide 25 mg PO DAILY 12/14/21 04/15/22 Previous Rx's Medication Instructions Recorded Aspirin [Adult Low Dose Aspirin EC] 81 mg PO DAILY #1 tablet. 11/27/18 Allergies Allergy/AdvReac Type Severity Reaction Status Date / Time cyclobenzaprine AdvReac STATES Verified 09/01/22 15:28 [From Flexeril] "AMPS HIM UP" Review of Systems ROS Statement: Those systems with pertinent positive or pertinent negative responses have been documented in the HPI. ROS Other: All systems not noted in ROS Statement are negative. Past Medical History Past Medical History: Coronary Artery Disease (CAD), Cancer, GERD/Reflux, Hyperlipidemia, Hypertension, Myocardial Infarction ([place]), Syncope Additional Past Medical History / Comment(s): HX KIDNEY STONES, HX SKIN CA Last Myocardial Infarction Date:: 09/28/2015 History of Any Multi-Drug Resistant Organisms: None Reported Past Surgical History: Heart Catheterization With Stent Additional Past Surgical History / Comment(s): BUNIONECTOMY. RIGHT QUADRICEP TENDON REPAIR. STENTSX4 Past Anesthesia/Blood Transfusion Reactions: No Reported Reaction Date of Last Stent Placement:: 10/25/2015 Past Psychological History: No Psychological Hx Reported Smoking Status: Never smoker Past Alcohol Use History: Occasional Past Drug Use History: None Reported - Past Family History Father Family Medical History: Coronary Artery Disease (CAD), Hypertension Additional Family Medical History / Comment(s): CARDIAC CATH WITH STENT Mother Family Medical History: Cancer Brother(s) Family Medical History: No Reported History Additional Family Medical History / Comment(s): patient has 2 children with 3 grand kids,no major issues. General Exam Limitations: physical limitation General appearance: alert, in no apparent distress Head exam: Present: atraumatic, normocephalic, normal inspection Eye exam: Present: normal appearance, PERRL, EOMI. Absent: scleral icterus, conjunctival injection, periorbital swelling ENT exam: Present: normal exam, mucous membranes moist Neck exam: Present: normal inspection, full ROM Respiratory exam: Absent: respiratory distress, accessory muscle use Cardiovascular Exam: Present: regular rate GI/Abdominal exam: Absent: distended Left Knee exam: Present: tenderness, swelling, effusion. Absent: full ROM, abrasion, laceration, ecchymosis, deformity, crepitus, dislocation, erythema, full knee extension Neurovascular tendon exam: Present: no vascular compromise Gait: observed and limited by pain Back exam: Present: normal inspection Neurological exam: Present: alert, oriented X3, CN II-XII intact Psychiatric exam: Present: normal affect, normal mood Skin exam: Present: warm, dry, intact, normal color. Absent: rash Course Vital Signs 09/01/22 09/01/22 15:22 16:59 Temperature 97.9 F Pulse Rate 60 57 L Respiratory 18 18 Rate Blood Pressure 178/90 158/73 O2 Sat by Pulse 97 97 Oximetry Medical Decision Making - Medical Decision Making 71-year-old male presenting to the emergency room via EMS after a fall and injury to his left knee with range of motion impairment and pain given previous history will obtain CT of the knee and defer x-ray. No indication for laboratory studies. CT of the left knee red without any acute dislocation or fracture. Due to trauma with reduced of range of motion with previous injuries will immobilize knee and have patient follow-up with orthopedist for further evaluation via MRI if indicated. Advised weightbearing as tolerated with elevation and rest when possible. Will give Tylenol 3 starter pack to utilize for pain. Will discharge home in stable condition. Case discussed with Dr. Corrales - Radiology Data Radiology results: report reviewed, image reviewed CT left knee without contrast impression by radiologist joint spaces are fairly normal. Some calcification of the patella. This is consistent with old tendon injury. There is mild subcutaneous edema anterior to the patella. No evidence of significant knee joint effusion. No fracture seen. Minimal calcification of the meniscus. Degenerative changes. No fracture seen. Disposition Clinical Impression: Fall, Left knee pain Disposition: HOME SELF-CARE Instructions (If sedation given, give patient instructions): Knee Pain (ED) Additional Instructions: Please continue conservative management with R. I. C. E. Rest joint when possible, apply ice for 20 minute increments every 2-3 hours, keep knee immobilized with immobilizer until follow-up with orthopedist. Weightbearing as tolerated.. Elevate joint when possible. Utilize [id number] analgesics of ibuprofen for inflammation and Tylenol 3 starter pack for pain. Please follow-up with your primary care provider. Please return to the Emergency Department if symptoms worsen or any other concerns. Is patient prescribed a controlled substance at d/c from ED?: No Referrals: Davey Nassar MD [Primary Care Provider] - 1-2 days Marcin Childress MD [STAFF PHYSICIAN] - 1-2 days Time of Disposition: 16:45
--- NOTE | 2022-09-01 16:30 | CT ---
EXAMINATION TYPE: CT knee LT wo con DATE OF EXAM: 09/01/2022 COMPARISON: None HISTORY: left knee pain CT DLP: 158.5 mGycm Automated exposure control for dose reduction was used. Images obtained from the mid femur to the mid tibia with no contrast. The joint spaces are fairly normal. Some calcification above the patella. This is consistent with old tendon injury. There is mild subcutaneous edema anterior to the patella. No evidence of any signific ant knee joint effusion. No fracture seen. There is minimal calcification of the menisci. IMPRESSION: Degenerative changes. No fracture seen.
[2022-09-01] MEDS ORDERED: ACET/COD 300 MG/30 MG STARTER PACK 6 TAB BTL PO STA (16:44)
[2022-09-01 17:02] VITALS: BP 158/73; PULSE 57
== END 2022-09-01 17:15 | disposition home or self-care (01) ==
LOC: EC 15:19
DX: M25.562 Pain in left knee (principal); I11.9 Hypertensive heart disease without heart failure; I25.10 Atherosclerotic heart disease of native coronary artery without angina pectoris; I25.2 Old myocardial infarction; Z79.83 Long term (current) use of bisphosphonates; Z79.811 Long term (current) use of aromatase inhibitors; Z79.02 Long term (current) use of antithrombotics/antiplatelets; Z79.82 Long term (current) use of aspirin; Z88.8 Allergy status to other drugs, medicaments and biological substances; W22.8XXA Striking against or struck by other objects, initial encounter
CPT/HCPCS: 73700; 99284; L1830

== ENCOUNTER → 2023-01-28 | Outpatient (CLI) | payer MEDICARE ==
[2023-01-28 11:22] LABS: ALT 30 U/L (10-49); AST 29 U/L (14-35); Chol/HDL Ratio 2.64 Ratio; LDL Cholesterol,Calculated 58.2 mg/dL (0.0-131.0); VLDL Calculation 13.78 mg/dL (5.00-40.00)
== END | disposition home or self-care (01) ==
LOC: LABWHC1 07:18
PROVIDERS: ATTEND Internal Medicine Interventional Cardiology
DX: E78.2 Mixed hyperlipidemia (principal)
CPT/HCPCS: 36415; 80061; 84450; 84460

== ENCOUNTER → 2024-04-23 | Outpatient (CLI) | payer MEDICARE ==
[2024-04-23 08:29] LABS: African American GFR (CKD) >90 (>60 ml/min/1.73 sqM); Blood Urea Nitrogen 20 mg/dL (9-20); Non-African American GFR(CKD) >90 (>60 ml/min/1.73 sqM)
--- NOTE | 2024-04-23 18:01 | CT ---
EXAMINATION TYPE: CT angio chest CT DLP: 725 mGycm, Automated exposure control for dose reduction was used. DATE OF EXAM: 04/23/2024 9:39 AM COMPARISON: CTA chest 12/17/2022, 05/23/2021 CLINICAL INDICATION:Male, 73 years old with history of I71.20 THORACIC ANEURYSM; Thoracic aneurysm. P riors in PACS. TECHNIQUE/CONTRAST: CTA scan of the thorax is performed before and after the uneventful administration of 100 mL Isovue-3 70 intravenously. MIP and 3-D images are created and reviewed these are created on a separate worksta tion.. FINDINGS: Lungs/Pleura: No evidence of focal consolidation, pleural effusion or pneumothorax. Minimal biapical pleural parenchymal scarring. Bilateral lower lobe subsegmental atelectasis dependently. Stable left lower lobe 4 mm pulmonary nodule (series 7, image 94). Stable 5 mm groundglass nodule along the left major fissure (series 7, image 60). Airway: Large airways are patent. Heart: Heart is mildly enlarged for size. No pericardial effusion. Moderate three-vessel coronary art clark calcification. Aortic valvular calcifications. Vasculature: Mild atherosclerotic calcification of the aorta and its branches. Conventional three-ves michelle aortic arch. No evidence for intramural hematoma. Stable aneurysmal dilatation of the ascending t horacic aorta measuring up to 4.5 cm when measured with similar technique (series 6, image 77). Stabl e aortic root aneurysm dilatation measuring up to 4.5 cm (series 6, image 24). Descending thoracic ao rta is stable measuring up to 3.0 cm (series 6, image 109). No evidence for aortic dissection. The or igins of the major vessels of the aorta are patent. No evidence of dissection or intramural hematoma. Visualized pulmonary arterial vasculature is patent without evidence for filling defect. Mild narrow ing at the origin of the right renal artery secondary to calcified plaque. Mediastinum: No evidence of adenopathy. Musculoskeletal: No acute osseous abnormalities. Similar moderate just effaces the L2-L3. Multilevel degenerative changes with multilevel anterior osteophytosis. Soft Tissues: Increased density posterior to the nipples bilaterally consistent with gynecomastia. Lower neck: No significant findings. Upper Abdomen: Stable right adrenal gland benign lipid rich adenoma measuring 1.2 cm. Hounsfield unit of -16 on noncontrast imaging. Similar thickening of the left adrenal gland. Stable left hepatic lob e 2.0 cm cyst at the dome. Redemonstration of partially visualized right renal 2.7 cm cyst. And parti ally visualized left renal 1.2 cm cyst. Cholelithiasis demonstrated. IMPRESSION: Stable aortic root and ascending thoracic aneurysm measuring up to 4.5 cm in greatest dimension when measured with similar technique. No evidence for dissection or intramural hematoma.
== END | disposition home or self-care (01) ==
LOC: RADCTMAIN 07:56
PROVIDERS: ATTEND Internal Medicine Interventional Cardiology
DX: I71.20 Thoracic aortic aneurysm, without rupture, unspecified (principal); I71.21 Aneurysm of the ascending aorta, without rupture; Z86.79 Personal history of other diseases of the circulatory system
CPT/HCPCS: 82565; 84520; 71275; 36415; Q9967